=== PATIENT | female | born 2000 | race Two or more races ===

== ENCOUNTER 2024-07-27 09:06 | Emergency (ER) | payer BC, OTHER ==
[~2024-07-27] VITALS: Ht 167.6 cm; Wt 75.4 kg
--- NOTE | 2024-07-27 10:19 | ED.PDOC ---
History of Present Illness HPI Comments 24F presents to the ER w/ no prior Hx associated to the c/c of ABN Vaginal Bleeding. Pt reports on being 19 weeks , while having an OBGYN of Doctor Sandra. Pt started to have vaginal bleeding last night and notified her OBGYN and she stated to go to the ER in the morning. Pt notes that she currently has ABD cramps, and is taking her vitamins. Pt is . Denies chills, fever, N/V/D< SOB, CP or no other associated symptom's, modifiers, recent injuries or sick contact at this time. 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 [employer] History Family History Family History: Reviewed,noncontributory to illness, Unknown Social History Smoker: Non-Smoker Alcohol: Denies ETOH Use Drugs: Denies Drug Use Lives In: Home Constitutional: denies: chills, diaphoresis, fatigue, fever, malaise, sweats, weakness, others EENTM: denies: blurred vision, double vision, ear bleeding, ear discharge, ear drainage, ear pain, ear ringing, eye pain, eye redness, hearing loss, mouth pain, mouth swelling, nasal discharge, nose bleeding, nose congestion, nose pain, photophobia, tearing, throat pain, throat swelling, voice changes, others Respiratory: denies: cough, hemoptysis, orthopnea, SOB at rest, shortness of breath, SOB with excertion, stridor, wheezing, others Cardiovascular: denies: chest pain, dizzy spells, diaphoresis, Dyspnea on exertion, edema, irregular heart beat, left arm pain, lightheadedness, palpi tations, PND, syncope, others Gastrointestinal: denies: abdomen distended, abdominal pain, blood streaked bowels, constipated, diarrhea, dysphagia, difficulty swallowing, hematemesis, melena, nausea, poor appetite, poor fluid intake, rectal bleeding, rectal pain, vomiting, others Genitourinary: reports: abnormal vagina bleeding, (19 weeks); denies: burning, dyspareunia, dysuria, flank pain, frequency, hematuria, incontinence, pain, vagina discharge, urgency, others Neurological: denies: dizziness, fainting, headache, left sided numbness, left sided weakness, numbness, paresthesia, pre-existing deficit, right sided numbness, right sided weakness, seizure, speech problems, tingling, tremors, weakness, others Musculoskeletal: denies: back pain, gout, joint pain, joint swelling, muscle pain, muscle stiffness, neck pain, others Integumetry: denies: bruises, change in color, change in hair/nails, dryness, laceration, lesions, lumps, rash, wounds, others Allergic/Immunocompromised: denies: Difficulty Healing, Frequent Infections, Hives, Itching, others Hematologic/Lymphatic: denies: anemia, blood clots, easy bleeding, easy bruising, swollen glands, others Endocrine: denies: excessive hunger, excessive sweating, excessive thirst, excessive urination, flushing, intolerance to cold, intolerance to heat, unexplained weight gain, unexplained weight loss, others Psychiatric: denies: anxiety, bipolar disorder, depression, hopeless, panic disorder, schizophrenia, sleepless, suicidal, others All Other Systems: Reviewed and Negative Physical Exam General Appearance: Moderate Distress, Normal HEENT: Normal ENT Inspection, Pharynx Normal, TMs Normal Neck: Full Range of Motion, Non-Tender, Normal, Normal Inspection Respiratory: Chest Non-Tender, Lungs Clear, No Accessory Muscle Use, No Respiratory Distress, Normal Breath Sounds Cardiovascular: No Edema, No JVD, No Murmur, No Gallop, Normal Peripheral Pulses, Regular Rate/Rhythm Breast Exam: Deferred Gastrointestinal: No Organomegaly, Non Tender, No Pulsatile Mass, Normal Bowel Sounds, Soft Genitalia: Deferred Pelvic: Deferred Rectal: Deferred Extremities: No calf tenderness, Normal capillary refill, Normal inspection, Normal range of motion, Non-tender, No pedal edema Musculoskeletal : Apperance: Normal Neurologic: Alert, poly operator II-XII nml as Tested, No Motor Deficits, Normal Affect, Normal Mood, No Sensory Deficits Cerebellar Function: Normal Reflexes: Normal Skin: Dry, Normal Color, Warm Peripheral Pulses: 3+ Radial (R), 3+ Radial (L) Lymphatic: No Adenopathy Was a procedure done? Was a procedure done?: No Differential Dx Considerations may include: Anemia X-Ray, Labs, Meds, VS Vital Signs Date Time Temp Pulse Resp B/P (MAP) Pulse Ox O2 Delivery O2 Flow Rate FiO2 07/27/24 09:20 98.2 85 16 92/62 (72) 97 Lab Test 07/27/24 11:09 07/27/24 09:35 Range/Units Beta HCG, Quantitative 94730.6 H 1.5-4.2 mIU/mL Urine Color Yellow Yellow Urine Clarity Turbid H Clear Urine pH 7.5 5.0-9.0 Urine Specific [place] 1.018 1.001-1.035 Urine Protein Negative Negative Urine Ketones 1+ H Negative Urine Blood 3+ H Negative /uL Urine Nitrite Negative Negative Urine Bilirubin Negative Negative Urine Urobilinogen Normal Negative mg/dL Urine Leukocyte Esterase Trace Negative /uL Urine RBC 2 0 - 4 /hpf Urine Microscopic WBC 11 H 0-5 /HPF Urine Squamous Epithelial Cells Mod <5 /hpf Urine Amorphous Crystals Few None Seen /hpf Urine Bacteria None seen None Seen /hpf Urine Mucus Few None Seen Urine Glucose Normal Normal mg/dL Patient alert. Complaining of vaginal spotting. She is . Vitals stable. Answering all questions. Urinalysis shows UTI. Ultrasound revealed does not show any acute process. Explained to the patient that she will need close follow up with imaging. She is being followed by OBGYN. She is currently taking vitamins. She was given prescription of Keflex antibiotic. Explained to the patient. Was told to follow up with her primary care physician. Was told to come back if there is any problem. Time of 1ST Reevaluation: 10:25 Reevaluation 1ST: Improved Patient Education/Counseling: Diagnosis, Treatment, Prognosis Family Education/Counseling: No Family Present Departure 1 Departure Time of Disposition: 11:34 Impression: Primary Impression: Vaginal bleeding during Additional Impression: UTI (urinary tract infection) Qualified Codes: N30.01 - Acute cystitis with hematuria Disposition: HOME / SELF CARE / HOMELESS Condition: Good e-Prescriptions Cephalexin (KEFLEX CAPSULE) 250 Mg Cp 250 MG PO QID for 5 Days, #20 BOTTLE Prov: CARYN FONTENOT MD 07/27/24 Discharged With: Self Critical Care Note Critical Care Time?: No Stability Stability form required: No Heart Score Heart Score: Heart Score Response (Comments) Value History N/A 0 EKG N/A 0 Age N/A 0 Risk Factors N/A 0 Troponin N/A 0 Total 0 I personally scribed for CARYN FONTENOT MD ([email or web address]) on 07/27/24 at 10:19. Electronically submitted by Yinka Gamboa ([email or web address]). CARYN FONTENOT MD Jul 27, 2024 10:19
[2024-07-27 11:07] LABS: Urine Bacteria None Seen /hpf (None Seen)
[2024-07-27 11:23] LABS: Urine Amorphous Crystal FEW /hpf (None Seen); Urine Blood 3+ /uL (Negative); Urine Clarity Turbid (Clear); Urine Color Yellow (Yellow); Urine Mucus FEW (None Seen); Urine Protein, UAD Negative (Negative); Urine Specific Gravity 1.018 (1.001-1.035); Urine Squamous Epithelial Cell MOD /hpf (<5); Urine Urobilinogen Normal (Negative); Urine WBC 11 /HPF (0-5); Urine pH 7.5 (5.0-9.0)
[2024-07-27] MEDS ORDERED: CEPH250C PO (11:35)
--- NOTE | 2024-07-27 11:38 | DVH ---
LIMITED OB ULTRASOUND > 14 WKS: HISTORY: bleeding TECHNIQUE: Multiple real-time grayscale images of the gravid uterus with duplex Doppler color flow an d M-mode spectral analysis. COMPARISON: None FINDINGS: IUP single live fetus at 19 weeks 1 day based on composite averages of the BPD, head circumference, a bdominal circumference and femur length. Estimated weight 279 grams. heart rate 161 beats per minute. Amniotic fluid is grossly adequate. Cervix measures 4.3 cm in length, there are possible contractions along both sides of the cervix near the os. There is marginal placenta, with the placenta abutting the internal os, without covering the internal os Cephalic presentation Grade 1 placenta without previa or abruption, in anterior position. IMPRESSION: 1. IUP single live fetus at 19 weeks 1 day AUA corresponding to an VANNESSA of 12/20/2024. 2. There appear to be contractions along both sides of the cervix near the os. The placenta abuts the internal os but does not appear to cover it. Attention on follow-up imaging recommended
[2024-07-27 14:22] VITALS: BP 106/60; PULSE 77; RESP 17; TEMP 98.9; O2SAT 97
== END 2024-07-27 14:25 | disposition home or self-care (01) ==
LOC: ER 09:06
DX: O23.12 Infections of bladder in pregnancy, second trimester (principal); N39.0 Urinary tract infection, site not specified; Z3A.19 19 weeks gestation of pregnancy; Z98.890 Other specified postprocedural states; Z34.90 Encounter for supervision of normal pregnancy, unspecified, unspecified trimester
CPT/HCPCS: 36415; 76805; 76817; 81001; 84702

== ENCOUNTER 2024-12-15 07:28 | Inpatient (IN) | payer BC ==
[~2024-12-15] VITALS: Ht 165.1 cm; Wt 81.6 kg
[~2024-12-15 07:28] MED LIST: CEPH250C PO
[2024-12-15] MEDS ORDERED: LIDOCAINE 2%HCL (LOCAL ANESTH.) INJ 20ML MDV IJ PRN (08:00)
[2024-12-15] MEDS ORDERED: LACT. RINGERS/OXYTOCIN 20UNITS 500 ML IV ONE ×2 (08:00→09:00)
[2024-12-15 08:42] LABS: Hematocrit 38.3 % (36.0-46.0); Hemoglobin 13.3 g/dL (12.2-16.2); Mean Corpuscular Hemoglobin 31.6 pg (28.0-32.0); Mean Corpuscular Volume 90.8 fL (80.0-100.0); Nucleated Red Blood Cells % 0.0 %
[2024-12-15 08:51] LABS: INR 0.92 (0.9-1.15); Partial Thromboplastin Time 24.3 SEC (24.5-34.5); Prothrombin Time 9.8 sec (9.3-11.8)
[2024-12-15 08:54] LABS: Alanine Aminotransferase 13 U/L (7-40); Albumin 3.9 g/dL (3.2-4.8); Anion Gap 11 (5-15); BUN/Creatinine Ratio 12.8 (10.0-20.0); Calcium 9.0 mg/dL (8.7-10.4); Carbon Dioxide 21 mmol/L (20-31); Glucose 79 mg/dL (74-106); Potassium 3.5 mmol/L (3.5-5.1); Sodium 139 mmol/L (136-145); Total Protein 5.9 g/dL (5.7-8.2)
[2024-12-15 08:56] LABS: Alkaline Phosphatase 119 U/L (46-116); Blood Urea Nitrogen 6 mg/dL (9-23); Chloride 107 mmol/L (98-107)
[2024-12-15] MEDS ORDERED: TERBUTALINE SULFATE 1 MG/ML 1ML VIAL SC PRN (09:00)
[2024-12-15] MEDS ORDERED: LACT. RINGERS/OXYTOCIN 20UNITS 1,000 ML IV SCH (09:00)
[2024-12-15] MEDS ORDERED: LACTATED RINGER'S 1,000 ML IV SCH (09:00)
[2024-12-15 09:02] LABS: Bilirubin, Total 0.4 mg/dL (0.2-1.0)
[2024-12-15] MEDS: PHISODERM TOP SOLN 240ML BTL TOP PRN (09:28)
[2024-12-15] MEDS: DERMOPLAST 60ML BOTTLE TOP PRN (09:28)
[2024-12-15] MEDS: WITCH HAZEL-GLYCERIN PAD TOP PRN (09:28)
[2024-12-15] MEDS: LACTATED RINGER'S 1,000 ML IV SCH (09:29)
[2024-12-15] MEDS: LACT. RINGERS/OXYTOCIN 20UNITS 500 ML IV ONE ×2 (10:00→13:54)
[2024-12-15 10:04] LABS: Amphetamine Screen, Urine Neg (NEGATIVE); Barbiturate Scree,Urine Neg (NEGATIVE); Benzodiazephine Screen, Urine Neg (NEGATIVE); Cannabinoid Screen, Urine Neg (NEGATIVE); Cocaine Screen, Urine Neg (NEGATIVE); Opiate Scree,Urine Neg (NEGATIVE); Phencyclidine Screen, Urine Neg (NEGATIVE)
[2024-12-15] MEDS ORDERED: NALOXONE HCL 0.4 MG/ML VIAL IV ONE (11:00)
--- NOTE | 2024-12-15 11:05 | DVHHP ---
ADMIT DATE: 12/15/2024 CHIEF COMPLAINT: Spontaneous rupture of membranes. HISTORY OF PRESENT ILLNESS: The patient is a 24-year-old 2, para 1 with EDC 12/21 and an estimated gestational age of 39+ weeks, admitted for spontaneous rupture of membranes, clear fluid. The patient's estimated weight is 8. I discussed the option of a primary due to macrosomia, possibility of shoulder dystocia, risk of palsy, and short-term and long-term morbidity and mortality discussed with the patient. The patient is adamant about proceeding with a trial of vaginal delivery. PAST MEDICAL HISTORY: None. PAST SURGICAL HISTORY: None. SOCIAL HISTORY: None. FAMILY HISTORY: None. ALLERGIES: No known allergies. REVIEW OF SYSTEMS: Consistent with HPI. PHYSICAL EXAMINATION: VITAL SIGNS: Stable, afebrile. HEENT: Within normal limits. CARDIOVASCULAR: Regular rate and rhythm. LUNGS: Clear to auscultation. BREASTS: Symmetrical, no masses. ABDOMEN: Gravid. Positive heart. Estimated weight 8 pounds. PELVIC: 2 cm, 50%, -2. Clear fluid. EXTREMITIES: No clubbing, cyanosis, or edema. IMPRESSION: Intrauterine at approximately 39 weeks with spontaneous rupture of membranes. PLAN: Start Pitocin. Informed consent obtained. The patient does not want the option of a primary . The patient fully understands the risk of shoulder dystocia, risks, complications, and increased morbidity and mortality. DO SANTANA Frias TID: [id number] RECEIPT: [id number]
[2024-12-15] MEDS: ROPIVACAINE HCL 100 ML ONE (11:21)
--- NOTE | 2024-12-15 11:45 | DVHPN2 ---
Chief Complaints Patient reports: No new complaints Nursing reports: No new complaints Objective Medications Current Medications Medications (Trade) Dose Ordered Sig/Robert Route PRN Reason Start Time Stop Time Status Last Admin Benzocaine (Dermoplast) 1 applic PRN PRN TOP PERINEAL AREA DISCOMFORT 12/15/24 08:00 12/15/24 09:28 Lactated Ringer's 1,000 ml @ 125 mls/hr Q8H IV 12/15/24 09:00 Lidocaine HCl (Xylocaine) 20 ml ONCE PRN IJ PERINEAL AREA DISCOMFORT 12/15/24 08:00 Misoprostol (Cytotec) 50 mcg Q4HPRN PRN PO CERVICAL RIPENING 12/15/24 08:30 Oxytocin 1,000 ml @ 6 ml/hr Q24H IV 12/15/24 09:00 Sodium Lauryl Sulfate (Phisoderm) 240 ml PRN PRN TOP PERINEAL AREA DISCOMFORT 12/15/24 08:00 12/15/24 09:28 Terbutaline Sulfate (Brethine Inj) 0.25 mg ONCE PRN SC Uterine tachysystole 12/15/24 09:00 Witch Venessa (Tucks) 1 pad PRN PRN TOP PERINEAL AREA DISCOMFORT 12/15/24 08:00 12/15/24 09:28 Others [id number]/-2 Studies Laboratory Tests 12/15/24 08:16 Test 12/15/24 08:16 Range/Units Serum Glucose 79 74-106 mg/dL Ass/Plan Assessment srom Plan cont with pitocin Visit Coding OBGYN Date of Service: Dec 15, 2024 Billing Provider: LUCY PETE DO CLINICAL STUDIES SPECIALIST Common Visit Codes: 27618-RTTVHFJ OBS CARE (HIGH) CLINICAL STUDIES SPECIALIST Procedure Codes: 53948-33- NON-STRESS TEST LUCY PETE DO Dec 15, 2024 11:45
[2024-12-15 13:27] LABS: Urine Protein, UAD TRACE (Negative)
--- NOTE | 2024-12-15 13:31 | LDN2 ---
Labor and Delivery Note Date 12/15/24 Age 24 2 Para 2 EDC 7-30 EGA 39wks Diagnosis srom Vaginal Delivery: VTX Vacuum Assisted: No Placenta: Spontaneous Sex: Female Apgars 8=9 Nuchal Cord Transected: No Amniotic Fluid: Clear Anesthesia epidural Episiotomy: No Extension: Yes (midline 1st deg perinael lac) Repaired with 2-0 chromic EBL 300ml Labs Blood Bank 12/15/24 08:16: Blood Type A NEGATIVE Complications none Conditions stable Comments/Significant Med Erlin spec exam no cxal lac Visit Coding OBGYN Date of Service: Dec 15, 2024 Billing Provider: LUCY PETE DO ONLINE MEDIA DIRECTOR Common Visit Codes: 99153-HWHGFRF INP/OBS CARE (HIGH) ONLINE MEDIA DIRECTOR Procedure Codes: 71779-UNQ DELIVERY ONLY LUCY PETE DO Dec 15, 2024 13:31
[2024-12-15] MEDS: METHYLERGONOVINE MALEATE 0.2 MG/ML AMP IM STA (13:52)
[2024-12-15] MEDS: OXYTOCIN 20 UNT in SODIUM CHLORIDE 0.9% 1,000 ML IV ONE (13:53)
[2024-12-15 19:00] VITALS: BP 109/54; PULSE 76; RESP 18; TEMP 97.9; O2SAT 98
[2024-12-15 23:00] VITALS: BP 105/52; PULSE 70; RESP 16; TEMP 97.8; O2SAT 96
[2024-12-16] MEDS: ACETAMINOPHEN 325 MG TAB PO PRN (00:13)
--- NOTE | 2024-12-16 00:56 | DVHPN2 ---
Progress Note Date Seen: Dec 16, 2024 Subjective -Lochia minimal -Tolerating regular diet well. -Ambulating and voiding well w/o feeling lightheaded or dizzy. -Passing flatus but no BM yet -Breast feeding. - Contraceptive plan: Condoms -Desires and requests to be discharged home today (12/16) vital signs Vital Sign Date Time Temp Pulse Resp B/P (MAP) Pulse Ox O2 Delivery O2 Flow Rate FiO2 12/15/24 23:00 97.8 70 16 105/52 (69) 96 97.8 12/15/24 19:00 Room Air Total Intake and Output 12/15/24 12/15/24 12/16/24 15:00 23:00 07:00 Output Total 1450 ml Balance -1450 ml medications Current Medications Medications Dose Ordered Sig/Robert Route Start Time Stop Time Status Last Admin Dose Admin Isatu Venessa 1 pad PRN PRN TOP 12/15/24 08:00 12/15/24 19:13 1 PAD Sodium Lauryl Sulfate 240 ml PRN PRN TOP 12/15/24 08:00 12/15/24 09:28 240 ML Benzocaine 1 applic PRN PRN TOP 12/15/24 08:00 12/15/24 09:28 1 APPLIC Lactated Ringer's 1,000 ml @ 125 mls/hr Q8H IV 12/15/24 09:00 Oxytocin 1,000 ml @ 6 ml/hr Q24H IV 12/15/24 09:00 Ibuprofen 600 mg Q6HP PRN PO 12/16/24 00:00 Acetaminophen 650 mg Q4HP PRN PO 12/16/24 00:00 12/16/24 00:13 650 MG Docusate Sodium 200 mg HS PO 12/16/24 22:00 laboratory and microbiology Laboratory Tests 12/15/24 08:16 Test 12/15/24 08:16 Range/Units Serum Glucose 79 74-106 mg/dL Objective -A&O x4. No apparent distress. Affect appropriate -Afebrile, VSS -Chest: heart and lung sounds normal. -Breasts: Nipples intact w/o cracks or soreness -Abdomen: normal BS, soft, non-tender, no rebound or guarding, fundus firm @ U- 1, lochia minimal -Perineum: no edema, or erythema, Incision site with sutures intact, edges in good approximation. -Extremities: no edema or tenderness Problems(with codes): (1) Normal spontaneous vaginal delivery (2) First degree perineal laceration Assessment/Plan ASSESSMENT -24 yo now ppd #1 s/p doing well. -Blood Type: A- -Breast feeding -Rubella Non-Immune PLAN -Continue pain management with oral medications as previously ordered -Increase fluid intake and fiber in diet to promote regular bowel movements, Laxative PRN -Give MMR vaccine, per protocol -Give Rhogam, per protocol -Encourage patient to continue taking vitamin and iron -Educated patient on self care and warning signs of PPH, PPD, and pre-eclampsia. Answered all pt questions and concerns. Anticipate discharge today Plan discussed with: Patient, Spouse Visit Coding OBGYN Date of Service: Dec 16, 2024 Billing Provider: GEMA PILLAI CNM FOOD AND BEVERAGE ASSISTANT Common Visit Codes: 62903-PJD/OBS SAME DATE (HIGH) GEMA PILLAI CNM Dec 16, 2024 00:56
--- NOTE | 2024-12-16 00:58 | DVHDS2 ---
Obstetrics Discharge Summary Obstetrics Discharge Summary Date of Admission: Dec 15, 2024 Date of Discharge: Dec 16, 2024 Reason For Admission: Onset of Labor Intrapartum Procedures: Spontaneous vaginal deliv Procedures: RHo (D) Ig, Rubella Ig Operative Complicat: Laceration (Perineal, first degree) Discharge Diagnosis: Term -Delivered Discharge Information: Activity (Unrestricted. Advance as tolerated. Balance activities with rest periods. No heavy lifting, pushing or straining. Pelvic rest x 6 weeks), Diet (Routine regular diet rich in fiber, protein, iron and vitamin C with adequate fluid intake.), Medications (Ibuprofen 600mg every 6 hours as needed for pain. Colace 100mg twice a day as needed to keep bowel movements soft and prevent constipation. Continue Vitamin and iron), Discharge to (Home), Discarge date (12/16/24) Discharge Care Plan Instructions - self care instructions given - emergency signs and symptoms including but not limited to pre-eclampsia precautions and signs of infection, PPH & of PPD reviewed with patient. -Follow up with OB Provider in 2 weeks and again at 6 weeks Visit Coding OBGYN Date of Service: Dec 16, 2024 Billing Provider: GEMA PILLAI CNM PAINT SPRAY TENDER Common Visit Codes: 08275-IQM/OBS DISCH DAY >30MIN GEMA PILLAI CNM Dec 16, 2024 00:58
[2024-12-16] MEDS ORDERED: DOCU-94 PO (01:02)
[2024-12-16] MEDS ORDERED: IBUP-1454 PO (01:02)
[2024-12-16 03:00] VITALS: BP 103/56; PULSE 60; RESP 18; TEMP 97.9; O2SAT 95
[2024-12-16] MEDS: IBUPROFEN 600 MG TAB PO PRN (03:15)
[2024-12-16 07:29] VITALS: BP 101/55; PULSE 68; RESP 18; TEMP 98.1; O2SAT 98
[2024-12-16 11:06] VITALS: BP 101/54; PULSE 60; RESP 15; TEMP 97.9; O2SAT 97
[2024-12-16] MEDS: METHYLERGONOVINE MALEATE 0.2 MG/ML AMP IM ONE (14:23)
[2024-12-16] MEDS: LACTATED RINGER'S 500 ML IV ONE (14:24)
[2024-12-16] MEDS ORDERED: DOCUSATE SOD 100 MG CAP PO SCH (22:00)
== END 2024-12-16 14:15 | disposition home or self-care (01) | DRG 807 ==
LOC: LDRP 07:28 → OBSVTOIN 07:45 → LDRP 07:45
PROVIDERS: ADMIT Obstetrics & Gynecology; ATTEND Obstetrics & Gynecology
PROC: 10E0XZZ Delivery of Products of Conception, External Approach (ICD-10-PCS; principal; 2024-12-15)
PROC: 0HQ9XZZ Repair Perineum Skin, External Approach (ICD-10-PCS; 2024-12-15)
DX: O70.0 First degree perineal laceration during delivery (principal); Z37.0 Single live birth; Z3A.39 39 weeks gestation of pregnancy
CPT/HCPCS: 36415; 59025; 59409; 62282; 80053; 80307; 81001; 81002; 85025; 85610; 85730; 86780; 86803; 86850; 86900; 86901; 94760; 96360; 96361; 96365; 96366; G0378; J2590